=== PATIENT | male | born 1985 | race Caucasian/White ===

== ENCOUNTER → 2020-07-06 | Outpatient (CLI) | payer BC, OTHER | LOC: LAB 08:16 | PROVIDERS: ATTEND Student in an Organized Health Care Education/Training Program | DX: Z01.818 Encounter for other preprocedural examination (principal); Z11.59 Encounter for screening for other viral diseases ==

== ENCOUNTER 2020-07-11 06:08 | Day surgery (SDC) | payer BC, OTHER ==
[~2020-07-11] VITALS: Ht 193 cm; Wt 105.7 kg
[2020-07-11 07:33] VITALS: BP 130/55
--- NOTE | 2020-07-13 07:31 | O ---
[facility] [place] [address] OPERATIVE REPORT Name: ADELITA ESPINAL Room #: [facility].#: [id number] Admission: 07/11/20 Attend Phys: Brett Fofana MD Discharge: 07/11/20 Date of : 81 Report #: [id number] THIS REPORT FOR: cc: Percy Mancera,Brett Downing MD ~ CC: Brett Mancera DATE OF SERVICE: 07/11/2020 SERVICE: Orthopedics. FACILITY: [facility]. SURGEON: Brett Fofana MD EPIC TRAINER: Sara Ledezma NP. INDICATION FOR EPIC TRAINER: Extremity positioning, suture management, assistance with the repair as well as arthroscope management. PREOPERATIVE DIAGNOSES: 1. Left hip pain. 2. Left hip femoroacetabular impingement, combined type. 3. Left hip labral tear. 4. Left hip chondromalacia. POSTOPERATIVE DIAGNOSES: 1. Left hip pain. 2. Left hip femoroacetabular impingement, combined type. 3. Left hip labral tear. 4. Left hip chondromalacia. PROCEDURES: 1. Left hip arthroscopic labral repair. 2. Left hip arthroscopic Cam osteoplasty. 3. Left hip arthroscopic acetabuloplasty. 4. Left hip arthroscopic chondroplasty. FINDINGS: 1. Detached anterior labral tear repaired with Treece CinchLock suture anchor x 3. 2. High-grade articular cartilage lesion without any grade 4 chondromalacia. 3. 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 [facility] [address] [place] [address] OPERATIVE REPORT Name: ADELITA ESPINAL Tamir Room #: [facility] Terrie.#: [id number] Admission: 07/11/20 Attend Phys: Brett Fofana MD Discharge: 07/11/20 Date of : 81 Report #: [id number] 4. Capsular closure with #2 Vicryl x 6. HISTORY: The patient is a 34-year-old gentleman with history of persistent progressive left hip pain, which he had undergone extensive conservative measures. He had unfortunately failed these which included rest, activity modifications, physical therapy, oral medicines, intra-articular injection, which provided positive pain response and modalities. He had greater than 6 months of symptoms and active treatment during this time with the above treatments. The preoperative imaging was consistent with severe impingement with a large Cam deformity with maximum alpha angle of approximately 87 degrees as well as a labral tear on MRI and chondromalacia. Based on his failure to improve with conservative measures, he is indicated for surgical treatment and wished to move forward in that direction. Risks, benefits, alternatives, and indication of surgery discussed with him in detail. Risks include but not limited to pain, bleeding, infection, injury to nerves or blood vessels, persistent pain despite surgical intervention, failure of any repairs, reconstructions, progression of any preexisting chondral injury, stiffness, need for further surgery as well as complications related to anesthesia such as stroke, heart attack, pulmonary complications, thromboembolic disease and . Despite these risks, he wished to proceed. PROCEDURE IN DETAIL: After left lower extremity was correctly identified in the preoperative holding area as operative extremity, the patient underwent placement of a single shot regional nerve block. He was then taken to the operating room where general anesthesia was induced without complication. He was padded appropriately. Prophylactic antibiotics were administered at appropriate time. The left hip femoral head and neck junction was mapped out under fluoroscopy to identify the extended Cam deformity, which did demonstrate an alpha angle of approximately 70 degrees. Left hip was then prepped and draped in standard sterile fashion. Time-out procedure was performed. Traction was applied to the left lower extremity. Standard anterolateral viewing portal was established under arthroscopic visualization and then anteromedial portal was established as well. There was noted to be a significant synovitis present within the hip. This will be the indication for the continuous passive motion machine usage postoperatively in order to minimize adhesions and stiffness postoperatively, which can be reasons for reoperation in this patient population. The labrum was noted to be fully detached anteriorly and there was chondromalacia at the chondral labral junction as well. The labrum was preserved for labral refixation. Transverse capsulotomy was performed and then the capsule was reflected off the dorsal side of the labrum allowing access to the acetabular rim. There was a lateral over coverage by a few degrees and so a bur was used to perform a lateral acetabuloplasty and then the anterior acetabulum was debrided to create a fresh bleeding surface for labral refixation. There was a small subspine lesion, which was treated with subspine decompression in typical fashion, resecting it to the appropriate level [address] [address] OPERATIVE REPORT Name: ADELITA ESPINAL Tamir [facility] [id number] Admission: 07/11/20 Attend Phys: Brett Fofana MD Discharge: 07/11/20 Date of : 81 Report #: [id number] using C-arm guidance as well as intraoperative arthroscopic assessment. After this was completed, we proceeded with labral refixation utilizing total of 3 Treece CinchLock suture anchors, which were placed with cerclage sutures, which provided excellent compression of the labrum against the acetabular rim and restore it to its anatomic position. At this point, the articular cartilage lesion could be visualized and there was some flap tears and significant grade 3 chondromalacia present, but there were no areas of frankly exposed (Grade IV) subchondral bone. Therefore, no microfracture was required. At this point, traction was let down. Hip was flexed up. Attention was turned towards the peripheral compartment. The transverse capsulotomy was extended down the femoral neck in a T fashion to allow complete visualization of the Cam deformity, which was very large and extended proximally, laterally, medially and distally with comprehensive in position. After the Cam was adequately exposed, a bur was used to perform a Cam osteoplasty in typical fashion. I removed the instruments, brought C-arm in, assessed the resection, identified some additional bone proximally and distally that needed to be resected, placed the instruments back into the hip, and then completed the Cam osteoplasty. At this point, the instruments were removed from the hip. C-arm was brought in again and we assessed the Cam resection on fluoroscopy. I was happy with the appearance. Final x-rays were taken and saved and then the T-shaped capsulotomy was closed with a total of six #2 Vicryl sutures. After the successful closure had been achieved, instruments were removed. The portal sites were closed. Sterile dressing was applied. The patient was awakened from anesthesia and taken to recovery room in stable condition. There were no complications. All counts were reported as correct. <ELECTRONICALLY SIGNED> By: Brett Fofana MD 07/13/20 0731 [id number] [id number] Brett Fofana MD /danie
== END 2020-07-11 11:40 | disposition home or self-care (01) ==
LOC: OR → TBA 06:09 → OR 10:12
PROVIDERS: ATTEND Orthopaedic Surgery Sports Medicine
DX: M25.552 Pain in left hip (principal); S73.102A Unspecified sprain of left hip, initial encounter; M75.42 Impingement syndrome of left shoulder; M25.852 Other specified joint disorders, left hip; M94.252 Chondromalacia, left hip; Z98.890 Other specified postprocedural states; Z79.899 Other long term (current) drug therapy; Z85.820 Personal history of malignant melanoma of skin; X58.XXXA Exposure to other specified factors, initial encounter; Y93.89 Activity, other specified; Y92.89 Other specified places as the place of occurrence of the external cause; Y99.8 Other external cause status
CPT/HCPCS: 50010; 50101; 50386; 51320; 51538; 52001; 52282; 52304; 52313; 56524; 56527; 57092; 57103; 58274; 62110; 62900; 64039; 70005